=== PATIENT | male | born 2000 | race Caucasian/White ===

== ENCOUNTER 2020-06-02 13:40 | Emergency (ER) | payer BC ==
[~2020-06-02] VITALS: Ht 180.3 cm; Wt 82.7 kg
[2020-06-02 13:46] VITALS: TEMP 97.8
[2020-06-02 14:28] LABS: BASO % 0.4 % (0.0-2.0); EOS % 0.6 % (0-4.0); GRAN # 4.3 (1.4-6.5); GRAN % 62.9 % (42.2-75.2); HEMATOCRIT 43.3 % (42.0-52.0); HEMOGLOBIN 15.2 g/dl (13.5-18.0); LYMPH # 1.9 (1.2-3.4); LYMPH % 27.5 % (20.0-51.0); MEAN CELL VOLUME 92 fl (80.0-100.0); MEAN CORPUSCULAR HEMOGLOBIN 32 pg (27.0-31.0); MEAN CORPUSCULAR HGB CONC 35 g/dl (33.0-37.0); MEAN PLATELET VOLUME 9.4 fl (7.4-10.4); MONO # 0.6 (0.1-0.6); MONO % 8.5 % (1.7-9.3); PLATELET COUNT 295 K/mm3 (130-400); RED BLOOD COUNT 4.69 M/mm3 (4.20-5.60)
[2020-06-02 14:29] LABS: INR 1.1 (0.8-3.0)
[2020-06-02 15:14] LABS: ALANINE AMINOTRANSFERASE 20 U/L (4-49); ALBUMIN 4.5 gm/dL (3.5-5.0); ALKALINE PHOSPHATASE 46 U/L (50-136); ANION GAP 9 mmol/L (7-16); AST,SGOT 28 U/L (15-37); BILIRUBIN,TOTAL 0.3 mg/dL (0.0-1.0); BLOOD UREA NITROGEN 12 mg/dL (9-20); CALCIUM 9.1 mg/dL (8.4-10.2); CARBON DIOXIDE 26 mmol/L (22-30); CHLORIDE 102 mmol/L (98-107); CREATININE, serum 0.87 (0.66-1.25); GLUCOSE 124 mg/dL (74-106); POTASSIUM 3.8 mmol/L (3.4-5.0); SODIUM 137 mmol/L (137-145); TOTAL PROTEIN 7.8 gm/dL (6.4-8.2)
[2020-06-02 15:15] LABS: C-REACTIVE PROTEIN < 0.5 mg/dL (0.0-0.9)
[2020-06-02 15:19] LABS: COLLECTION METHOD CLEAN CATCH
[2020-06-02 15:31] LABS: MUCOUS Present /lpf; PH 6 (5-8); SQUAMOUS EPITHELIAL None Seen /hpf; URINE APPEARANCE Clear; URINE BACTERIA None Seen /hpf; URINE BILIRUBIN Negative (NEGATIVE); URINE BLOOD Negative (NEGATIVE); URINE COLOR Yellow; URINE GLUCOSE Negative (NEGATIVE); URINE KETONE 1+ (NEGATIVE); URINE LEUKOCYTE ESTERASE Negative (NEGATIVE); URINE NITRATE Negative (NEGATIVE); URINE PROTEIN(semi-quant) Negative (NEGATIVE); URINE RBC None Seen /hpf; URINE UROBILINOGEN Negative (NEGATIVE)
[2020-06-02] MEDS ORDERED: PERCOCET 325 MG1 TA2 PO (16:16)
[2020-06-02] MEDS ORDERED: CIPRO 500MG TA500 MG PO (16:16)
[2020-06-02 16:35] VITALS: BP 146/93; PULSE 80
== END 2020-06-02 16:36 | disposition home or self-care (01) ==
LOC: COL.ER 13:40
PROVIDERS: Emergency Medicine
DX: N41.1 Chronic prostatitis (principal); N40.0 Benign prostatic hyperplasia without lower urinary tract symptoms; Z88.1 Allergy status to other antibiotic agents; Z20.822 Contact with and (suspected) exposure to COVID-19
CPT/HCPCS: J1170; J2270; J2405; J7030